=== PATIENT | female | born 1995 | race Caucasian/White ===

== ENCOUNTER 2019-05-13 23:08 | Emergency (ER) | payer OTHER ==
[2019-05-14] MEDS ORDERED: ACETAMINOPHEN 325 MG TABLET PO STA (00:36)
[2019-05-14 00:37] LABS: BILIRUBIN,URINE NEGATIVE (NEGATIVE); GLUCOSE, URINE (UA) NEGATIVE (NEGATIVE); KETONES,URINE (UA) NEGATIVE (NEGATIVE); LEUKOCYTE ESTERASE, URINE NEGATIVE (NEGATIVE); NITRITE,URINE NEGATIVE (NEGATIVE); OCCULT BLOOD,URINE SMALL (NEGATIVE); PH,URINE 6.5 PH (5.0-7.5); PROTEIN,URINE NEGATIVE (NEGATIVE); UROBILINOGEN,URINE 0.2 (NORMAL) E.U./dL (NORMAL)
[2019-05-14 00:39] LABS: CLARITY,URINE CLEAR (CLEAR)
--- NOTE | 2019-05-14 00:39 | ED Physician Documentation ---
<Gabino Broussard A - Last Filed: 05/14/19 00:36> PD HPI FEMALE - Stated complaint Stated Complaint: 9 WEEKS /BLEEDING - Chief complaint Chief Complaint: Abd Pain - History obtained from History obtained from: Patient - History of Present Illness Timing - onset: How many hours ago (1) Timing - details: Abrupt onset (Had an onset of some mild lower abdominal crampiness associated with some spotting of blood in her underwear estimated about a teaspoon. She did not have any further ongoing bleeding.) Associated symptoms: Vaginal bleeding. 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 She had had some lower abdominal cramping and had an ultrasound that showed an estimated 5-week gestational age . At the time she thought she would be about 9 weeks by dates. She states her blood test was done but she does not not know the results at that time. 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 Psych: Depression, Anxiety - Past Surgical History Past Surgical History: No - Allergies Allergies/Adverse Reactions: Allergies Allergy/AdvReac Type Severity Reaction Status Date / Time No Known Drug Allergies Allergy Verified 05/14/19 00:39 - Social History Does the pt smoke?: No Smoking Status: Never smoker Does the pt drink ETOH?: No Does the pt have substance abuse?: No - Immunizations Immunizations are current?: Yes - POLST Patient has POLST: No PD ED PE NORMAL - Vitals Vital signs reviewed: Yes - General General: Alert and oriented X 3, No acute distress, Well developed/nourished - Cardiac Cardiac: RRR, No murmur - Respiratory Respiratory: Clear bilaterally - Abdomen Abdomen: Soft, Non tender - Derm Derm: Normal color, Warm and dry PD MEDICAL DECISION MAKING - ED course Complexity details: considered differential (Bedside ultrasound showed no apparent gestational sac with size approximately 7 weeks. This is not consistent with her dates. We will get a more formal ultrasound.) Departure - Departure Disposition: 01 Home, Self Care Clinical Impression: Threatened Condition: Good Instructions: ED Miscarriage Poss Follow-Up: [facility] [Provider Group] Discharge Date/Time: 05/14/19 04:16 <Alex Palomares - Last Filed: 05/14/19 06:21> Results - Vitals Vitals: Vital Signs - 24 hr 05/13/19 05/14/19 23:10 04:13 Temperature 36.0 C L 36.7 C Heart Rate 82 70 Respiratory 15 16 Rate Blood Pressure 137/73 H 127/87 H O2 Saturation 99 100 Oxygen O2 Source Room air - Labs Labs: Laboratory Tests 05/14/19 05/14/19 05/14/19 00:25 00:50 00:50 WBC 6.6 RBC 4.44 Hgb 13.3 Hct 40.0 MCV 90.1 MCH 30.0 MCHC 33.3 RDW 13.4 Plt Count 274 MPV 9.4 Neut # (Auto) 4.0 Lymph # (Auto) 1.9 [place] # (Auto) 0.6 Eos # (Auto) 0.1 Baso # (Auto) 0.1 Absolute Nucleated RBC 0.00 Nucleated RBC % 0.0 HCG, Quant Urine Color YELLOW Urine Clarity CLEAR Urine pH 6.5 Ur Specific Driver <=1.005 Urine Protein NEGATIVE Urine Glucose (UA) NEGATIVE Urine Ketones NEGATIVE Urine Occult Blood SMALL H Urine Nitrite NEGATIVE Urine Bilirubin NEGATIVE Urine Urobilinogen 0.2 (NORMAL) Ur Leukocyte Esterase NEGATIVE Urine RBC 0-5 Urine WBC 0-3 Ur Squamous Epith Cells FEW Squamous Urine Bacteria Rare Ur Microscopic Review INDICATED Urine Culture Comments NOT INDICATED Blood Type O POSITIVE 05/14/19 00:50 WBC RBC Hgb Hct MCV MCH MCHC RDW Plt Count MPV Neut # (Auto) Lymph # (Auto) [place] # (Auto) Eos # (Auto) Baso # (Auto) Absolute Nucleated RBC Nucleated RBC % HCG, Quant 57921.00 Urine Color Urine Clarity Urine pH Ur Specific Driver Urine Protein Urine Glucose (UA) Urine Ketones Urine Occult Blood Urine Nitrite Urine Bilirubin Urine Urobilinogen Ur Leukocyte Esterase Urine RBC Urine WBC Ur Squamous Epith Cells Urine Bacteria Ur Microscopic Review Urine Culture Comments Blood Type
[2019-05-14 00:43] LABS: RBC,URINE 0-5 /HPF (0-5)
[2019-05-14 00:44] LABS: BACTERIA,URINE Rare /HPF (None Seen); SQUAMOUS EPITHELIAL CELL,UR FEW Squamous (<= Few)
[2019-05-14 01:04] LABS: BASOPHILS # (AUTO) 0.1 10^3/uL (0.0-0.1); BASOPHILS % (AUTO) 0.8 %; EOSINOPHILS # (AUTO) 0.1 10^3/uL (0.0-0.7); EOSINOPHILS % (AUTO) 1.8 %; HGB - HEMOGLOBIN 13.3 g/dL (12.0-16.0); LYMPHOCYTES # (AUTO) 1.9 10^3/uL (1.5-3.5); LYMPHOCYTES % (AUTO) 28.1 %; MEAN CORPUSCULAR HGB CONC 33.3 g/dL (32.0-36.0); MEAN CORPUSCULAR VOLUME 90.1 fL (81.0-99.0); MEAN PLATELET VOLUME 9.4 fL (7.9-10.8); MONOCYTES # (AUTO) 0.6 10^3/uL (0.0-1.0); MONOCYTES % (AUTO) 9.7 %; NEUTROPHILS % (AUTO) 59.4 %; PLT - PLATELET COUNT 274 10^3/uL (130-450); RED BLOOD COUNT 4.44 10^6/uL (4.20-5.40); RED CELL DISTRIBUTION WIDTH 13.4 % (12.0-15.0); WHITE BLOOD COUNT 6.6 x10^3/uL (4.8-10.8)
--- NOTE | 2019-05-14 02:29 | Ultrasound Report ---
Reason: early preg, spotting Procedure Date: 05/14/2019 Accession Number: [id number] / [id number] Procedure: US - OB First Trimester CPT Code: FULL RESULT: EXAM: FIRST TRIMESTER OBSTETRIC ULTRASOUND (Less than 11 weeks) EXAM DATE: 05/14/2019 01:26 AM. CLINICAL HISTORY: , spotting, LMP 02/09/2019, 13 weeks 3 days COMPARISONS: None. TECHNIQUE: Transabdominal and transvaginal ultrasound examination with static image documentation. FINDINGS: Gestational Sac: An intrauterine fluid-filled sac contains both an embryo and yolk sac. Of note, there appears to be a second small healed sac without additional pole seen. Embryo: CRL (crown-rump length) measures 4 mm corresponding to an estimated gestational age of 6 weeks 0 days. Heart Rate: 0 beats per minute. Placenta: Not visible at this gestational age. Amniotic fluid: Not accurately assessed at this gestational age. Uterus: Unremarkable anteverted appearance. Cervix: Closed. Right Ovary: Volume 19 cc. Normal echotexture and blood flow. Left Ovary: Volume 8 cc. Normal echotexture and blood flow. Free Fluid: None. Other: None. IMPRESSION: 1. Very early intrauterine gestation with 4 mm embryo but without heartbeat detected. Given history of bleeding and discordance from clinical dates, aborting is possible. At this stage however, exam remains indeterminate for viability. 2. Additional second small yolk sac suspected without second pole seen. 3. Suggest 10-14 day followup to ensure viability of and for more accurate dating. RADIA
[2019-05-14 04:16] VITALS: BP 127/87
--- NOTE | 2019-05-14 06:29 | ED Physician Documentation ---
ED Addendum - Addendum Addendum: 05/14/19 06:23 Received sign out from Dr. Broussard after he initially evaluated patient. Please see his note for H+P. In brief, patient c/o vaginal bleeding and pelvic cramping. She is (primagravida) and she says she had US at [facility] approximately 3 weeks ago which showed IUP approximately 5 weeks GA which was discordant with dates (expected to be approximately 9 weeks at that time). US obtained tonight and this shows 4mm embryo which corresponds to GA of 6 weeks 0 days, which is further concerning in light of last US being 3-4 weeks ago and showing 5 weeks at that time. Her blood work is reassuring and blood type is O+. She is in no physical distress on my evaluation, although appropriately tearful when I discuss US results with her. I emphasized that it is not clear if she is having a miscarriage, but this seems the likely outcome given the information currently available. Instructed to return if worse and f/u with her vocational director as scheduled in a few days.
== END 2019-05-14 04:16 | disposition home or self-care (01) ==
LOC: EDBD 23:08 → ED 23:08
DX: O20.0 Threatened abortion (principal); Z3A.01 Less than 8 weeks gestation of pregnancy
CPT/HCPCS: 36415; 76801; 76817; 81001; 81003; 84702; 85025; 86900; 86901; 87086; 99282; 99284

== ENCOUNTER 2019-05-17 21:45 | Emergency (ER) | payer OTHER ==
[2019-05-17 22:37] LABS: BASOPHILS # (AUTO) 0.1 10^3/uL (0.0-0.1); EOSINOPHILS # (AUTO) 0.1 10^3/uL (0.0-0.7); EOSINOPHILS % (AUTO) 1.3 %; HGB - HEMOGLOBIN 13.3 g/dL (12.0-16.0); LYMPHOCYTES # (AUTO) 1.8 10^3/uL (1.5-3.5); LYMPHOCYTES % (AUTO) 25.4 %; MEAN CORPUSCULAR HEMOGLOBIN 29.4 pg (27.0-31.0); MEAN CORPUSCULAR HGB CONC 32.7 g/dL (32.0-36.0); MEAN PLATELET VOLUME 9.5 fL (7.9-10.8); MONOCYTES # (AUTO) 0.6 10^3/uL (0.0-1.0); MONOCYTES % (AUTO) 8.6 %; NEUTROPHILS # (AUTO) 4.6 10^3/uL (1.5-6.6); NEUTROPHILS % (AUTO) 63.4 %; PLT - PLATELET COUNT 296 10^3/uL (130-450); RED BLOOD COUNT 4.52 10^6/uL (4.20-5.40); RED CELL DISTRIBUTION WIDTH 13.3 % (12.0-15.0); WHITE BLOOD COUNT 7.2 x10^3/uL (4.8-10.8)
[2019-05-17 22:46] LABS: ALBUMIN 4.2 g/dL (3.2-5.5); ALBUMIN/GLOBULIN RATIO 1.1 (1.0-2.2); BILIRUBIN,TOTAL 0.2 mg/dL (0.2-1.0); CALCIUM 9.1 mg/dL (8.5-10.3); CREATININE 0.5 mg/dL (0.4-1.0); TOTAL PROTEIN 7.9 g/dL (6.7-8.2)
[2019-05-17] MEDS ORDERED: KETOROLAC 30 MG/ML VIAL IVP STA (23:22)
[2019-05-17] MEDS ORDERED: MORPHINE 2 MG/ML CARPUJECT IVP STA (23:29)
[2019-05-17] MEDS ORDERED: ONDANSETRON 4 MG/2 ML VIAL IVP STA (23:38)
[2019-05-18] MEDS ORDERED: HYDROcod/ACETAM 5/325 MG TABLET PO STA (00:06)
--- NOTE | 2019-05-18 00:06 | ED Physician Documentation ---
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 Her intrauterine measures approximately 6 weeks. This was seen on ultrasound a few days ago. hCG had decreased today. Told she is having a miscarriage. Increased cramping tonight. Review of Systems Constitutional: denies: Fever, Chills Respiratory: denies: Cough GI: reports: Nausea. 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 Psych: Depression, Anxiety - Past Surgical History Past Surgical History: No - Present Medications Home Medications: Ambulatory Orders Medication Instructions Recorded Confirmed Sertraline [Zoloft] 1 tab PO DAILY 05/17/19 05/17/19 Hydrocodone/Acetaminophen 1 - 2 each PO Q6H PRN #10 tablet 05/18/19 [Hydrocodon-Acetaminophen 5-325] Ondansetron Odt [Zofran] 4 mg TL Q6H PRN #10 tablet 05/18/19 - Allergies Allergies/Adverse Reactions: Allergies Allergy/AdvReac Type Severity Reaction Status Date / Time No Known Drug Allergies Allergy Verified 05/14/19 00:39 - Social History Does the pt smoke?: No Smoking Status: Never smoker Does the pt drink ETOH?: No Does the pt have substance abuse?: No - Immunizations Immunizations are current?: Yes - POLST Patient has POLST: No PD ED PE NORMAL - Vitals Vital signs reviewed: Yes - General General: Alert and oriented X 3, No acute distress - HEENT HEENT: Moist mucous membranes - Neck Neck: Supple, no meningeal sign - Cardiac Cardiac: RRR - Respiratory Respiratory: No respiratory distress, Clear bilaterally - Abdomen Abdomen: Soft, Non distended, Other (Tender palpation suprapubic without peritoneal signs) - Female Female : Pt declined - Back Back: No CVA TTP, No spinal TTP - Derm Derm: Warm and dry - Extremities Extremities: No edema - Neuro Neuro: Alert and oriented X 3 Results - Vitals Vitals: Vital Signs - 24 hr 05/17/19 05/17/19 05/17/19 21:54 23:10 23:38 Temperature 36.8 C 36.7 C Heart Rate 93 92 87 Respiratory 18 24 20 Rate Blood Pressure 129/65 120/78 116/53 L O2 Saturation 100 99 100 05/18/19 05/18/19 00:20 01:15 Temperature 36.8 C Heart Rate 78 97 Respiratory 16 18 Rate Blood Pressure 107/53 L 119/60 O2 Saturation 100 100 Oxygen O2 Source Room air - Labs Labs: Laboratory Tests 05/17/19 05/17/19 05/17/19 22:26 22:26 22:26 WBC 7.2 RBC 4.52 Hgb 13.3 Hct 40.7 MCV 90.0 MCH 29.4 MCHC 32.7 RDW 13.3 Plt Count 296 MPV 9.5 Neut # (Auto) 4.6 Lymph # (Auto) 1.8 [place] # (Auto) 0.6 Eos # (Auto) 0.1 Baso # (Auto) 0.1 Absolute Nucleated RBC 0.00 Nucleated RBC % 0.0 Sodium 135 Potassium 3.8 Chloride 103 Carbon Dioxide 20 L Anion Gap 12.0 BUN 10 Creatinine 0.5 Estimated GFR (MDRD) 149 Glucose 110 H Calcium 9.1 Total Bilirubin 0.2 AST 26 ALT 32 Alkaline Phosphatase 61 Total Protein 7.9 Albumin 4.2 Globulin 3.7 Albumin/Globulin Ratio 1.1 Lipase 29 HCG, Quant 7679.00 Urine Color Urine Clarity Urine pH Ur Specific Oracle Urine Protein Urine Glucose (UA) Urine Ketones Urine Occult Blood Urine Nitrite Urine Bilirubin Urine Urobilinogen Ur Leukocyte Esterase Urine RBC Urine WBC Ur Squamous Epith Cells Urine Bacteria Urine Mucus Ur Microscopic Review Urine Culture Comments 05/18/19 00:16 WBC RBC Hgb Hct MCV MCH MCHC RDW Plt Count MPV Neut # (Auto) Lymph # (Auto) [place] # (Auto) Eos # (Auto) Baso # (Auto) Absolute Nucleated RBC Nucleated RBC % Sodium Potassium Chloride Carbon Dioxide Anion Gap BUN Creatinine Estimated GFR (MDRD) Glucose Calcium Total Bilirubin AST ALT Alkaline Phosphatase Total Protein Albumin Globulin Albumin/Globulin Ratio Lipase HCG, Quant Urine Color YELLOW Urine Clarity BLOODY Urine pH 7.0 Ur Specific Oracle 1.025 Urine Protein 30 H Urine Glucose (UA) NEGATIVE Urine Ketones 15 H Urine Occult Blood LARGE H Urine Nitrite NEGATIVE Urine Bilirubin NEGATIVE Urine Urobilinogen 0.2 (NORMAL) Ur Leukocyte Esterase NEGATIVE Urine RBC TNTC H Urine WBC 0-3 Ur Squamous Epith Cells FEW Squamous Urine Bacteria Rare Urine Mucus Few Strands Ur Microscopic Review INDICATED Urine Culture Comments NOT INDICATED PD MEDICAL DECISION MAKING - ED course Complexity details: reviewed results, considered differential, d/w patient, d/w family ED course: 24-year-old female with a miscarriage. Pain well controlled. She was also anxious in the emergency department. Feels better after antianxiety medications as well. She did pass large clots here and then her bleeding has slowed. Abdomen is soft, nontender nondistended on serial exam. Patient counseled regarding signs and symptoms for which I believe and urgent re-evaluation would be necessary. Patient with good understanding of and agreement to plan and is comfortable going home at this time This document was made in part using voice recognition software. While efforts are made to proofread this document, sound alike and grammatical errors may occur. Departure - Departure Disposition: Home, Self Care Clinical Impression: Miscarriage Condition: Good Instructions: ED Miscarriage Incom Follow-Up: your,doctor in 3 days [Other] Prescriptions: Hydrocodone/Acetaminophen [Hydrocodon-Acetaminophen 5-325] 1 - 2 each PO Q6H PRN #10 tablet PRN Reason: pain Ondansetron Odt [Zofran] 4 mg TL Q6H PRN #10 tablet PRN Reason: Nausea / Vomiting Comments: You appear to be having a miscarriage tonight. Return if you worsen. You can use the medications as needed for pain for home. Most of the pain should pass tonight. Do not drink alcohol or drive while on narcotic pain medicine. Note that many narcotic pain relievers also contain tylenol/acetaminophen. Please ensure that your total dose of acetaminophen from all sources does not exceed 3 grams (3000mg) per day. You may constipated on this medication, take a stool softener such as "Colace" twice a day while you are on it. Also recommend a ofgb-clr-[id number] laxative such as senna or MiraLAX any day that you do not have a bowel movement. If you received narcotic pain medication in the emergency department, do not drive or operate machinery for the next 24 hours. Discharge Date/Time: 05/18/19 01:20
[2019-05-18] MEDS ORDERED: LORazepam 2 MG/ML VIAL IVP STA (00:09)
[2019-05-18 00:38] LABS: BILIRUBIN,URINE NEGATIVE (NEGATIVE); GLUCOSE, URINE (UA) NEGATIVE (NEGATIVE); KETONES,URINE (UA) 15 mg/dL (NEGATIVE); LEUKOCYTE ESTERASE, URINE NEGATIVE (NEGATIVE); NITRITE,URINE NEGATIVE (NEGATIVE); OCCULT BLOOD,URINE LARGE (NEGATIVE); PROTEIN,URINE 30 mg/dL (NEGATIVE); UROBILINOGEN,URINE 0.2 (NORMAL) E.U./dL (NORMAL)
[2019-05-18 00:40] LABS: CLARITY,URINE BLOODY (CLEAR)
[2019-05-18 00:41] LABS: BACTERIA,URINE Rare /HPF (None Seen); MUCUS,URINE Few Strands; RBC,URINE TNTC /HPF (0-5); SQUAMOUS EPITHELIAL CELL,UR FEW Squamous (<= Few)
[2019-05-18 01:21] VITALS: BP 119/60
== END 2019-05-18 01:20 | disposition home or self-care (01) ==
LOC: ED 21:45
DX: O03.4 Incomplete spontaneous abortion without complication (principal); F41.9 Anxiety disorder, unspecified
CPT/HCPCS: 36415; 80053; 81001; 83690; 84702; 85025; 96374; 96375; 99284; 99285; A9270; J2060; 81003; 87086

== ENCOUNTER 2020-12-19 17:52 | Emergency (ER) | payer OTHER ==
--- NOTE | 2020-12-19 18:30 | ED Physician Documentation ---
History of Present Illness - Stated complaint Stated Complaint: VACCINE REACTION,DIZZY,LIGHTHEADED - Chief complaint Chief Complaint: Allergic Rx - History obtained from History obtained from: Patient - Additonal information Additional information: 25-year-old woman presents status post COVID-19 vaccine with sensation of lightheadedness and throat tightness while driving home. She states that she a lso feels weak. Denies shortness of breath, rash, chest pain, wheezing or stridor, fever sensation, nausea or vision changes. She does state that she is supposed to work tonight and is requesting a work note. NKda. +seasonal allergies. patient has an epipen at home. 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 Psych: Depression, Anxiety - Past Surgical History Past Surgical History: No - Present Medications Home Medications: Ambulatory Orders Medication Instructions Recorded Confirmed Sertraline [Zoloft] 1 tab PO DAILY 05/17/19 05/17/19 Hydrocodone/Acetaminophen 1 - 2 each PO Q6H PRN #10 tablet 05/18/19 [Hydrocodon-Acetaminophen 5-325] Ondansetron Odt [Zofran] 4 mg TL Q6H PRN #10 tablet 05/18/19 - Allergies Allergies/Adverse Reactions: Allergies Allergy/AdvReac Type Severity Reaction Status Date / Time No Known Drug Allergies Allergy Verified 05/14/19 00:39 - Social History Does the pt smoke?: No Smoking Status: Never smoker Does the pt drink ETOH?: No Does the pt have substance abuse?: No - Immunizations Immunizations are current?: Yes - POLST Patient has POLST: No PD ED PE NORMAL - Vitals Vital signs reviewed: Yes - General General: Alert and oriented X 3, No acute distress, Well developed/nourished - HEENT HEENT: Atraumatic, PERRL, EOMI, Moist mucous membranes, Pharynx benign - Neck Neck: Supple, no meningeal sign, Other (normal upper airway sounds on neck auscultation) - Cardiac Cardiac: RRR - Respiratory Respiratory: No respiratory distress, Clear bilaterally - Abdomen Abdomen: Non tender, Non distended - Derm Derm: Normal color, Warm and dry, No rash - Extremities Extremities: No deformity, No edema - Neuro Neuro: Alert and oriented X 3 - Psych Psych: Normal mood, Normal affect Results - Vitals Vitals: Vital Signs - 24 hr 12/19/20 17:53 Temperature 37.2 C Heart Rate 73 Respiratory 16 Rate Blood Pressure 149/81 H O2 Saturation 100 Oxygen O2 Source Room air PD MEDICAL DECISION MAKING - ED course ED course: 25-year-old woman presents requesting work note after becoming lightheaded and feeling weak after getting her COVID-19 vaccine. Will administer Benadryl, however If she is having an allergic reaction that it is mild 1. She does have an EpiPen at home and knows how to use it. Education was given about signs and symptoms of anaphylaxis and strict return precautions were given. Patient will follow up with [place]. Departure - Departure Disposition: 01 Home, Self Care Clinical Impression: Lightheadedness, Weakness Condition: Good Instructions: ED Drug React Adverse Other Comments: You were seen in the emergency department for an adverse reaction to the first dose of the COVID-19 vaccine. You should still be able to get your second dose. You should get lots of rest and drink fluids over the next 24 hours. I am writing you a note for work. You can follow-up with [place] after that. I do not think that this is a serious allergic reaction, however if you experience shortness of breath, wheezing, stridor, (high-pitched breathing), chest pain, severe dizziness or fainting, full body rash then you will need to use your EpiPen and come to the emergency department immediately. Forms: Activity restrictions
[2020-12-19] MEDS ORDERED: diphenhydrAMINE 25 MG CAPSULE PO STA (18:31)
[2020-12-19 18:35] VITALS: BP 126/87
== END 2020-12-19 18:39 | disposition home or self-care (01) ==
LOC: ED 17:52
DX: R42 Dizziness and giddiness (principal)
CPT/HCPCS: 99282; A9270

== ENCOUNTER 2020-12-24 15:07 | Emergency (ER) | payer OTHER ==
[2020-12-24] MEDS ORDERED: SODIUM CHLORIDE 0.9% 1,000 ML IV STA (15:35)
[2020-12-24] MEDS ORDERED: LORazepam 1 MG TABLET PO STA (15:35)
--- NOTE | 2020-12-24 15:37 | ED Physician Documentation ---
History of Present Illness - Stated complaint Stated Complaint: WEAKNESS,DIZZY,NAUSEA - Chief complaint Chief Complaint: General - History obtained from History obtained from: Patient - Additonal information Additional information: First Covid vaccine 5 days ago, that day she became dizzy and lightheaded and has remained that way with nausea and tiredness ever since. Feels like someone is beating [place] in her head, not painful per se but disorienting. Despite the time course, the symptoms are persistent and she had a panic attack yesterday and feels like she may have another one. Review of Systems Constitutional: reports: Fatigue. 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 : None HEENT: None Psych: Depression, Anxiety Musculoskeletal: None Derm: None - Past Surgical History Past Surgical History: No - Present Medications Home Medications: Ambulatory Orders Medication Instructions Recorded Confirmed LORazepam [Ativan] 1 mg PO TID PRN #7 tablet 12/24/20 - Allergies Allergies/Adverse Reactions: Allergies Allergy/AdvReac Type Severity Reaction Status Date / Time No Known Drug Allergies Allergy Verified 12/24/20 15:11 - Social History Does the pt smoke?: No Smoking Status: Former smoker Does the pt drink ETOH?: No Does the pt have substance abuse?: No - Immunizations Immunizations are current?: Yes - POLST Patient has POLST: No PD ED PE NORMAL - Vitals Vital signs reviewed: Yes - General General: Alert and oriented X 3, No acute distress - HEENT HEENT: PERRL, EOMI - Neck Neck: Supple, no meningeal sign, No bony TTP - Cardiac Cardiac: RRR, No murmur - Respiratory Respiratory: No respiratory distress, Clear bilaterally - Abdomen Abdomen: Non tender - Back Back: No CVA TTP, No spinal TTP - Derm Derm: Normal color, Warm and dry - Extremities Extremities: No edema, No calf tenderness / cord - Neuro Neuro: Alert and oriented X 3, Normal speech Results - Vitals Vitals: Vital Signs - 24 hr 12/24/20 15:13 Temperature 36.9 C Heart Rate 75 Respiratory 18 Rate Blood Pressure 143/63 H O2 Saturation 99 Oxygen O2 Source Room air - Labs Labs: Laboratory Tests 12/24/20 12/24/20 12/24/20 15:45 15:45 16:28 WBC 5.2 RBC 4.48 Hgb 13.7 Hct 40.9 MCV 91.3 MCH 30.6 MCHC 33.5 RDW 11.8 L Plt Count 275 MPV 9.9 Neut # (Auto) 3.2 Lymph # (Auto) 1.4 L Harris # (Auto) 0.4 Eos # (Auto) 0.1 Baso # (Auto) 0.1 Absolute Nucleated RBC 0.00 Nucleated RBC % 0.0 Sodium 138 Potassium 3.9 Chloride 102 Carbon Dioxide 25 Anion Gap 11.0 BUN 8 Creatinine 0.7 Estimated GFR (MDRD) 100 Glucose 105 H Calcium 10.3 Magnesium 2.1 Total Bilirubin 0.7 AST 16 ALT 16 Alkaline Phosphatase 66 Total Protein 7.9 Albumin 4.5 Globulin 3.4 Albumin/Globulin Ratio 1.3 Urine HCG, Qual NEGATIVE PD MEDICAL DECISION MAKING - ED course ED course: At this point I think this is a residual Covid vaccine reaction., It is associated with anxiety. She was feeling better after IV fluids and some Ativan. Departure - Departure Disposition: 01 Home, Self Care Clinical Impression: Lightheadedness, Muscle weakness Condition: Good Record reviewed to determine appropriate education?: Yes Instructions: ED Weakness [facility] Prescriptions: LORazepam [Ativan] 1 mg PO TID PRN #7 tablet PRN Reason: Anxiety Comments: Call your doctor to arrange a follow-up appointment, make the next available appointment. In the interim, return anytime if worse or if new symptoms develop. Forms: Activity restrictions
[2020-12-24 15:49] LABS: BASOPHILS # (AUTO) 0.1 10^3/uL (0.0-0.1); EOSINOPHILS # (AUTO) 0.1 10^3/uL (0.0-0.7); EOSINOPHILS % (AUTO) 1.2 %; HCT - HEMATOCRIT 40.9 % (37.0-47.0); HGB - HEMOGLOBIN 13.7 g/dL (12.0-16.0); LYMPHOCYTES # (AUTO) 1.4 10^3/uL (1.5-3.5); LYMPHOCYTES % (AUTO) 27.7 %; MEAN CORPUSCULAR HEMOGLOBIN 30.6 pg (27.0-31.0); MEAN CORPUSCULAR HGB CONC 33.5 g/dL (32.0-36.0); MEAN CORPUSCULAR VOLUME 91.3 fL (81.0-99.0); MEAN PLATELET VOLUME 9.9 fL (7.9-10.8); MONOCYTES # (AUTO) 0.4 10^3/uL (0.0-1.0); MONOCYTES % (AUTO) 8.3 %; NEUTROPHILS # (AUTO) 3.2 10^3/uL (1.5-6.6); NEUTROPHILS % (AUTO) 61.6 %; PLT - PLATELET COUNT 275 10^3/uL (130-450); RED BLOOD COUNT 4.48 10^6/uL (4.20-5.40); RED CELL DISTRIBUTION WIDTH 11.8 % (12.0-15.0); WHITE BLOOD COUNT 5.2 x10^3/uL (4.8-10.8)
[2020-12-24 16:02] LABS: ALBUMIN 4.5 g/dL (3.2-5.5); ALBUMIN/GLOBULIN RATIO 1.3 (1.0-2.2); BILIRUBIN,TOTAL 0.7 mg/dL (0.2-1.0); CALCIUM 10.3 mg/dL (8.5-10.3); CREATININE 0.7 mg/dL (0.4-1.0); MAGNESIUM 2.1 mg/dL (1.7-2.8); POTASSIUM 3.9 mmol/L (3.5-5.0); TOTAL PROTEIN 7.9 g/dL (6.7-8.2)
[2020-12-24 16:34] LABS: HCG UR QUAL NEGATIVE
[2020-12-24 16:47] VITALS: BP 125/62
--- OUTSIDE RECORDS SUMMARY | 2020-12-31 22:54 | EXTERNAL MEDICAL SUMMARY RPT | Continuity of Care Document ---
:1995 Demographics Phone Unavailable Preferred Language Unknown Marital Status Unknown Holiness Affiliation Unknown Race Unknown Ethnic Group Unknown Author Organization [facility] Address [address] [id number] Phone Social History date description facility [id number]
== END 2020-12-24 16:51 | disposition home or self-care (01) ==
LOC: ED 15:07
DX: R42 Dizziness and giddiness (principal); R53.1 Weakness; Z87.891 Personal history of nicotine dependence
CPT/HCPCS: 36415; 80053; 81025; 83735; 85025; 99283; 99284; J8499

== ENCOUNTER 2021-04-09 10:34 | Emergency (ER) | payer OTHER ==
[2021-04-09 10:42] VITALS: BP 136/82
--- NOTE | 2021-04-09 12:14 | ED Physician Documentation ---
History of Present Illness - Stated complaint Stated Complaint: SOA/CHEST PX - Chief complaint Chief Complaint: Resp - Additonal information Additional information: 26-year-old female presents the emergency department for evaluation of her [place]. She reports that she takes Claritin every day and uses Flonase at night but she continues to have congestion. She wakes up in the morning and has a raw scratchy throat. The allergies make it sometimes difficult for her to breathe which increases her anxiety. She does not have any pleuritic chest pain or exertional chest pain. No history of coronary artery disease. She is a non-smoker. Rare alcohol use. She was advised by [facility] to come to the ER for evaluation. Patient reports that about 2 years ago she had allergy testing completed which showed that she had severe allergies to pine. Review of Systems Constitutional: denies: Fever, Chills, Myalgias Eyes: reports: Reviewed and negative Ears: reports: Reviewed and negative Nose: reports: Rhinorrhea / runny nose, Congestion, Sinus pressure / pain Throat: reports: Sore throat. 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 : None HEENT: None Psych: Depression, Anxiety Musculoskeletal: None Derm: None - Past Surgical History Past Surgical History: No - Present Medications Home Medications: Ambulatory Orders Medication Instructions Recorded Confirmed LORazepam [Ativan] 1 mg PO TID PRN #7 tablet 12/24/20 Mometasone Furoate [Nasonex] 17 gm NS DAILY #1 pump 04/09/21 Montelukast [Singulair] 10 mg PO QPM #30 tablet 04/09/21 - Allergies Allergies/Adverse Reactions: Allergies Allergy/AdvReac Type Severity Reaction Status Date / Time No Known Drug Allergies Allergy Verified 04/09/21 10:42 - Social History Does the pt smoke?: No Smoking Status: Former smoker Does the pt drink ETOH?: No Does the pt have substance abuse?: No - Immunizations Immunizations are current?: Yes - POLST Patient has POLST: No PD ED PE EXPANDED - General General: Alert, No acute distress, Well developed/nourished - HEENT HEENT: PERRL, EOMI, Pharyngeal erythema ( posterior oropharynx erythema without exudate tonsillar swelling. Uvula is midline. No soft bed palate asymmetry.), Other (Allergic rhinitis and shiners.). No: Swollen tonsils, Tonsillar exudate, Soft palate petecchiae - Neck Neck: Supple w/out meningeal sx, No tenderness. No: Adenopathy - Cardiac Cardiac: Regular Rate, Radial strong equal, Pedal strong equal, Cap refill < 2 sec - Respiratory Respiratory: Clear to ausultation doug. No: Distress, Labored - Abdomen Abdomen: Normal Bowel sounds. No: Tender to palpation - Derm Derm: Normal color, Warm and dry. No: Rash - Extremities Extremities: Normal - Neuro Neuro: Alert and Oriented X 3, CNII-XII intact - GCS Eye Opening: Spontaneous Motor: Obeys Commands Verbal: Oriented Total: 15 Results - Vitals Vitals: Vital Signs - 24 hr 04/09/21 10:39 Temperature 36.2 C L Heart Rate 82 Respiratory 16 Rate Blood Pressure 136/82 H O2 Saturation 100 Oxygen O2 Source Room air PD MEDICAL DECISION MAKING - ED course Complexity details: reviewed results, re-evaluated patient, d/w patient ED course: 26-year-old female presents the emergency department for evaluation of worsening nasal congestion, postnasal drip, sore throat and occasional cough. She does have a history of seasonal allergies which she takes Flonase every day at night as well as Claritin once a day. On exam she has an unremarkable cardiopulmonary auscultation. Given age and history very low suspicion for ACS. She denies chest pain at this time for me. By PERC criteria and Wells criteria she is very low risk for a PE. I suspect that changing the way she manages her allergies will be helpful. I have recommended daily steam showers in which she should also do a saline nasal rinse. Following that recommend Nasonex nasal spray. I would also have her start taking Singulair instead of Claritin to help manage the allergies as well as Benadryl at night. If symptoms are worsening, she develops exertional chest pain, shortness of air leg swelling or calf pain she will return immediately to the ER for a second evaluation. Departure - Departure Disposition: 01 Home, Self Care Clinical Impression: Environmental allergies Condition: Stable Record reviewed to determine appropriate education?: Yes Prescriptions: Mometasone Furoate [Nasonex] 17 gm NS DAILY #1 pump Montelukast [Singulair] 10 mg PO QPM #30 tablet Comments: Sherry I think that the seasonal allergies are causing the congestion sore throat and the sensation of being short of air. I think changing the way you manage the allergies can be helpful. Every morning please take a warm steam shower. While in the shower use saline nasal rinse to rinse your sinuses. Blow your nose well in the shower. Once out of the shower use the Nasonex nasal spray. This inhaled steroid will then be able to work directly at the site of your sinuses causing the congestion and the postnasal drip. But also have you start taking montelukast or Singulair. This is a different allergy medication. Take this every evening before bed. Taking an antihistamine like Benadryl 25 mg at night before bed can also be helpful with your symptoms. Please discuss this with [facility]. Repeat allergy testing may be indicated in the future. If at any point you feel that the symptoms are worsening then please return to the ER for a second look.
== END 2021-04-09 12:26 | disposition home or self-care (01) ==
LOC: ED 10:34
DX: Z91.09 Other allergy status, other than to drugs and biological substances (principal); Z87.891 Personal history of nicotine dependence
CPT/HCPCS: 99282; 99284

== ENCOUNTER 2021-06-05 08:00 | Outpatient (CLI) | payer OTHER | END 2021-06-05 23:59 | disposition home or self-care (01) | LOC: LAB.N 08:00 | PROVIDERS: ATTEND Nurse Practitioner | DX: J32.8 Other chronic sinusitis (principal); Z20.822 Contact with and (suspected) exposure to COVID-19 ==

== ENCOUNTER 2022-02-04 08:43 | Outpatient (CLI) | payer OTHER ==
--- NOTE | 2022-02-04 17:17 | XRAY Report ---
PROCEDURE: Abdomen 2 View X-Ray INDICATIONS: LUQ ABDOMINAL PX TECHNIQUE: 2 views of the abdomen were acquired. COMPARISON: None FINDINGS: Surgical changes and devices: None. Bowel: No pneumoperitoneum. The bowel gas pattern is normal. There is increased stool throughout t he large bowel. Soft tissues: No masses; visualized solid organ contours appear normal in size. No suspicious abdom inal calcifications. Bones: No suspicious bony abnormalities. IMPRESSION: No acute plain film abnormality. Reviewed by: Rogers Edgar on 02/04/2022 5:16 PM PDT Approved by: Rogers Edgar on 02/04/2022 5:16 PM PDT Station ID: [id number]
== END 2022-02-04 23:59 | disposition home or self-care (01) ==
LOC: DI.N 08:43
PROVIDERS: ATTEND Family Medicine
DX: R10.12 Left upper quadrant pain (principal)